=== PATIENT | female | born 1990 | race Caucasian/White ===

== ENCOUNTER 2023-12-14 12:47 | Outpatient (CLI) | payer BC, SELFPAY ==
--- NOTE | 2023-12-14 13:00 | CRLHL7_ITS ---
For Patients: As a result of the Century Cures Act, medical imaging exams and procedure reports are released immediately into your electronic medical record. You may view this report before your referring provider. If you have questions, please contact your health care provider. OB ULTRASOUND GREATHER THAN 14 WEEKS, 12/14/2023 CLINICAL HISTORY: screen. COMPARISON: None. FINDINGS: GA: 20 weeks 1 day. Position: Breech. Cervix: Visualized. Technique: TA. Length of closed cervix: 4.2 cm. Placenta/Cord: Placenta Position: Anterior. Placenta tip to internal OS: 8.5 cm. Umbilical Cord: 3 vessel cord. Placental Insertion: Eccentric. Amniotic Fluid: 4.9 cm. Observed Structures: Cerebellum: 1.9 cm, 19 weeks 1 day Cisterna Magna: 6.3 mm Nuchal Fold: 4.2 mm Lateral Ventricle: 6.6 mm CFP Midline Falx Choroid Plexus Spine Abdomen: Stomach Abd cord insert Urinary bladder Kidneys Diaphragm Face: Nose/lips Orbital view Profile Limbs: Upper extremities Lower extremities Hands Feet Vascular: 4 Ch heart LVOT RVOT 3VV 3VTV BPD: 4.5 cm, 19 weeks 5 days. 30% HC: 17.0 cm, 19 weeks 4 days. 19% AC: 16.5 cm, 21 weeks 4 days. 86% FL: 3.2 cm, 20 weeks 1 day. 42% heart rate: 155 bpm. age by this US: 20 weeks 0 days. LEONARD by this US: . EFW: 373 grams. 0 lbs 13 oz. Percentile by LEONARD: 78% IMPRESSION: 1. Single viable intrauterine . 2. Measurements are consistent with clinical dates. 3. Normal anatomic survey. Yunior Tejada M.D. Body/Diagnostic Radiologist [email or web address] Transcribed: 9:17 am DW/Dictated by: Yunior Tejada MD @ 12/16/2023 8:17:00 AM (Electronically Signed)
--- OUTSIDE RECORDS SUMMARY | 2023-12-14 13:09 | XMS_ITS | Clinical Summary ---
Author Organization [facility] Address [address] [place] [address] Care Team Providers Care Chemical Dependency Attendant Name Role Phone Unavailable Primary Care Provider Unavailabl e Source Comments You are receiving this document as you are listed as the primary care provider,follow-up provider, or the patient has been referred to you for consultation.This is in compliance with the Medicare andOhio[facility] Cent[facility]aid EHR Incentive Program,which states Providers who transition their patient to another setting of careor provider of care or refers their patient to another provider of care shouldprovide summary care record for each transition of care or referral. [employer] Allergies Active Allergy Reactions Criticality Noted Date Comments Cefaclor Hives High 05/05/2019 Medications Medication Sig Dispensed Refills Start Date End Date Status multivitamin (THERAGRAN) tablet Take 1 Tablet by mouth daily. Active omega-3 fatty acids (FISH OIL) 1000 MG capsule Take 2 g by mouth daily. Active probiotic (AKA SUPER PROBIOTIC) Take 2 Capsules by mouth daily. Active drug not in computer Acti ve Active Problems No known active problems Social History Tobacco Use Types Packs/Day Years Used Date Smoking Tobacco: Never Smokeless Tobacco: Never Sex and Gender Information Value Date Recorded Sex Assigned at Not on file Gender Identity Not on file Sexual Orientation Not on file Last Filed Vital Signs Vital Sign Reading Time Taken Comments Blood Pressure 99/74 05/05/2019 11:59 AM TENTER FEEDER Pulse 80 05/05/2019 11:59 AM TENTER FEEDER Temperature 37.1 ??C (98.8 ??F) 05/05/2019 11:[address] Respiratory Rate 16 05/05/2019 11:59 AM TENTER FEEDER Oxygen Saturation 100% 05/05/2019 11:59 AM TENTER FEEDER Inhaled Oxygen Concentration - - Weight - - Height - - Body Mass Index - - Plan of Treatment Health Maintenance Due Date Last Done Comments Cervical Cancer Screening Due 1991 Hep C Screening (Preventive Services) 1991 HIV Screening (Preventive Services) 2007 Adult Preventive Visit 2009 DTaP/Tdap/Td (1 - Tdap) 2010 HepB (1) 2010 COVID-19 Vaccine (1 - 2023-2 5 season) 2023 Influenza (#1) 2023 Zoster/Shingles (1 of 2) 2041 HPV Vaccine Aged Out No longer eligi ble based on patient's age to complete this topic HepA Aged Out No longer eligi ble based on patient's age to complete this topic Hib Aged Out No longer eligi ble based on patient's age to complete this topic IPV (Polio) Aged Out No longer eligi ble based on patient's age to complete this topic RSV Aged Out No longer eligi ble based on patient's age to complete this topic MCV4 Aged Out No longer eligi ble based on patient's age to complete this topic Pneumococcal Aged Out No longer eligi ble based on patient's age to complete this topic
--- OUTSIDE RECORDS SUMMARY | 2023-12-14 13:09 | XMS_ITS | Continuity of Care Document ---
Author Organization [facility] Address [address] [address] [place] [address] Phone Care Team Providers Care Other Sports Official Name Role Phone Shoaib Lewis Unavailable Unavailable Allergies, Adverse Reactions, Alerts Substance Reaction Status Criticality cefaclor HivesHives Active No Information cefaclor Active No Information Procedures Procedure Date Established Level 3 or 15-24 min 2019 Established Level 4 or 25-39 min 2019 Offic/outpt E&m New Mod-hi Routine Serum Collection Gg; Iga, Igd, Igg, Igm, Ea Advance Directives Directive Yes / No Effective Date File Name No Information Encounters Encounter Description Practice Location Reason(s) For Visit Diagnoses Date Provider Providers Copied on Encounter Established Level 3 or 15-24 min [facility] [place], [address] [address], [place], [id number], [place] tel:[phone] [facility] GI Symptoms or Concerns (chief complaint) Generalized abdominal painNauseaLoose stools 2- 0 Tomasz Cramer. [address] [facility] [address], [place], [id number] , [place]. tel:[phone] Referring Provider: Referral Self, USE FOR SELF REFERRALS. [facility] [place], [address] [address], [place], [id number], [place] tel:[phone] [facility] No Information [phone] Luis A Schmidt. [address] [facility], [facility] [address], [place], [id number] , [place]. tel:[phone] Established Level 4 or 25-39 min [facility], [address] [address], [place], [id number], [place] tel:[phone] [facility] GI Symptoms or Concerns (chief complaint) Change in bowel habitsAbdominal pain, unspecified abdominal location 0 Jimbo Walker. [address] [facility], [facility] [address], [place], [id number] , [place]. tel:[phone] Referring Provider: Referral Self, USE FOR SELF REFERRALS. [facility], [address] [address], [place], [id number], [place] tel:[phone] [facility] No Information 0 Luis A Schmidt. [address] [facility], [facility] [address], [place], [id number] , [place]. tel:[phone] Offic/outpt E&m New Mod-hi [facility], [address] [address], [place], [id number], [place] tel:[phone] [facility] GI Symptoms or Concerns (chief complaint) Abdominal pain, unspecified abdominal locationChange in bowel habits 0 Kristyn Nguyen. [address] [facility], [address], [place], [id number] , [place]. [phone] Family History Family Member Type Diagnosis Age At Onset Brother Problem (finding) alcoholism Father Problem (finding) irritable bowel syndrom e Mother Problem (finding) asthma Immunizations Vaccine Date Status Comments Afluria Qd administered Note: M IIC bi-directional interface ; Source: Other Registry Fluzone Quad 6mo or older administered Note: [facility]IC bi-direct ional interface ; Source: Other Registry Human Papillomavirus 9-robyn t vaccine administered Note: MIIC bi-direct ional interface ; Source: Other Registry Human Papillomavirus 9-robyn t vaccine administered Note: MIIC bi-direct ional interface ; Source: Other Registry Human Papillomavirus 9-robyn t vaccine administered Note: MIIC bi-direct ional interface ; Source: Other Registry Afluria Qd administered Note: M IIC bi-directional interface ; Source: Other Registry Fluzone Quad 6mo or older administered Note: [facility]IC bi-direct ional interface ; Source: Other Registry Payers Payer name Insurance type Covered constitution party ID Sanchez thomas(s) Krishna [employer] Of [facility] [id number] Social History Type Description Quantity Date Captured Comments Alcohol Use Details No Caffeine Use Details Unknown Tobacco Use Status Current non-smoker Smoking Status Never smoker Non-Smoking Tobacco Use Details : No Details Available : No Details Available Sex Female Vital Signs Date / Time: Height Weight BMI Pulse Rate Blood Pressure Temperature Respiratory Rate Body Surface Area Head Circumference Head Circ. Percentile Wt./[place]. Percentile BMI percentile Pulse Ox Inhaled Ox 7:42 AM 66.00 in 56.699 kg (125.00 lbs) 20.1 7 kg/m eter (2) Chief Complaint And Reason For Visit From encounter dated '02/01/2020 07:39'. GI Symptoms or Concerns (chief complaint). Description: This is a 30-year-old female who is following up on symptoms of abdominal pain, nausea, and change in bowel habits. She was previously seen [place] Choi; please refer to these notes for further information. Today'svisit was completed via virtual visit, the patient was in a private location with no other persons, consent was obtained.In short, over the past 2 to 3 years she has had intermittent episodes of abdominal pains, nausea, and change in bowel habits. Symptoms typically worsened after eating. She is unable to identify any triggering factors. However, these symptoms eventually resolve on their own over a course of 3 to 4 weeks. She has had previous workups including a CBC, CMP, thyroid testing, ultrasound, H. pylori testing, which were all normal. 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 This is currently being managed by dietary changes with an anti-inflammatory diet, supplements, and essential oils. Fortunately, this has been providing relief for the patient. Antibiotics were not given for treatment of SIBOas the patient reports a long history of antibiotic use, which she feels may have triggered her symptoms. The functional provider also suspected either parasitic infections versus inflammatory changes that may be contributing to her symptoms and recommended GI followup. The patient has never had anupper endoscopy or colonoscopy done before. No CT imaging. She has no family history of inflammatory bowel disease.Separately, the patient questions if hormonal changes and stress/anxiety may be contributing factors. She states she had been on oral contraceptives for the past 16 years, but quit about 1 year ago. Since then, she has had very irregular menstrual cycles. Reason For Referral Reason For Referral No Information Plan Of Treatment Date Type Action Status Referral Ordered: Xray Abdomen Complete Appointment date/timeframe: 05/04/2019 ordered History Of Present Illness Encounter Date Complaint History Of Prese nt Illness GI Symptoms or Concerns This is a 30-year-old female who is following up on symptoms of abdominal pain, nausea, and change in bowel habits. She was previously seen her on 12/13/[address] Choi; please refer to these notes for further information. Today's visit was completed via virtual visit, the patient was in a private location with no other persons, consent was obtained.In short, over the past 2 to 3 years she has had intermittent episodes of abdominal pains, nausea, and change in bowel habits. Symptoms typically worsened after eating. She is unable to identify any triggering factors. However, these symptoms eventually resolve on their own over a course of 3 to 4 weeks. She has had previous workups including a CBC, CMP, thyroid testing, ultrasound, H. pylori testing, which were all normal. 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 At that time, she was having change in bowel habits and abdominal pain. She had testing done, which included an ultrasound, LFTs, H. pylori, CBC, and thyroid studies. All of these were unremarkable. Additional testing at the time of the visit included an abdominal x-ray done on April 22, 2019. This showed a moderate amount of stool. She was tested negative for celiac disease.She notes that around April she got ill and afterwards she felt no GI symptoms. About 8 weeks ago, she went on a special diet to try to improve her acne. After that, she started having abdominal pain and changes in her bowel movements. Her stools have been looser and smaller in amount. She has had some bloating. She will get abdominal upset about an hour after eating most foods. She has since gone off this diet about a week ago due to these side effects. She has noticed some improvement. 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 She states for the last 3-1/2 weeks or so, she has had a dull burning pain in the upper abdominal area that comes in waves. This occurs on and off. She also has noted more irregular bowel movements. She has had irregularity with her bowel movements over the years and this certainly worsens with anxiety which she has significantly. When she is anxious, this will produce urgent bowel movements typically. Because of issues with anxiety and poor sleep, she cut out gluten, dairy, and sugars since January. Over the last 2 months, she has also been on magnesium. Around the start of these symptoms, she stopped the control pill that she had been on for 17 years. She tried a progesterone clean and then had a period, then these symptoms started. She also stopped spironolactone a month ago. She was on that for acne. About once a week or so, she has random loose stools. Typically, she will have Kenton type IV bowel Functional Status Date Functional Assessmen t No Information Instructions Date Instruction Additional Infor calista Provider plan - At t his point, we will check an abdominal x-ray to look for excessive stool. Check blood tests for celiac (she has been mostly off of gluten, so if it comes back entirely normal, would not necessarily rule out celiac disease), try IBgard to see if that helps with her symptoms. Also starting Metamucil powder to see if that can help with bowel movements and symptoms. I will set up a followup appointment in clinic. If she is still having issues, we may consider further evaluation, CT scan? colonoscopy?. We preliminary discussed those today too, she also felt we did not need to necessarily proceed with those currently. Related to Abdominal pain, unspecified abdominal location Assessments Type Assessment Date assessment Generalized abdominal pain assessment Nausea assessment Loose stools impression A 30-year-old female with intermittent symptoms of abdominal pain, nausea and loose stools. Initial workup including CBC, CMP, lipase, thyroid tests, H. pylori, and ultrasound was unremarkable. X-ray from April 2019 noted moderate amount of stool in her colon, but was otherwise normal. She is working with a Functional Medicine doctor, which diagnosed her with SIBO and Tracy overgrowth. She is currently on a treatment with dietary changes, supplements, and essential oils, which has been helpful for the patient.I suspect the patient likely has IBS or other functional disorders, SIBO could also be a contributing factor. Mucosal diseases like inflammatory bowel disease remain a possibility, although given the mildness of her symptoms I do not have a high suspicion for this.At this point, I would recommend we can either proceed with conservative measures as she is doing versus further diagnostic testing such as endoscopic examinations or CT imaging. We also discussed about symptom management with medications like antispasmodics for her abdominal pain, antiemetics for her nausea. After much discussion, the patient would prefer to continue with her current regimen as prescribed by her functional provider. If symptoms do not improve or if she should change her mind, she will contact us by phone to either schedule the endoscopic evaluation or try medications like dicyclomine or hyoscyamine.The patient agrees with this plan and has no further questions or concerns. Twenty minutes spent with the patient, over 50% of the time was spent on counseling and coordination of care. Patient Care Teams Name Effective Dates (start - stop) Status Members No Information
--- OUTSIDE RECORDS SUMMARY | 2023-12-14 13:10 | XMS_ITS | Referral Summary ---
Author Organization [facility] Address [address] [facility] [place] [address] Care Team Providers Care Crater And Packer Name Role Phone Madeline Ventura PA-C Primary Care Provid er Jovanny Bennett MD Unavailable [phone] Allergies Active Allergy Reactions Criticality Noted Date Comments Cefaclor Hives 07/04/2014 Medications Medication Sig Dispensed Refills Start Date End Date Status Multiple Vitamin (MULTI-VITAMINS) TABS Take 1 tablet by mouth Active [employer]-3 Fish Oil 500 MG capsule Take 1 capsule (500 mg) by mouth daily 03/26/2021 Active vitamin D3 (CHOLECALCIFEROL) 50 mcg (2000 units) tablet Take 1 tablet (50 mcg) by mouth daily 03/26/2021 Active amoxicillin-clavulana te (AUGMENTIN) 875-125 MG tabletIndications:Acu te bacterial sinusitis Take 1 tablet by mouth 2 times daily 14 tablet 12/25/2021 Active Active Problems Problem Noted Date Diagnosed Date Encounter for triage in patient 021 10/06/2020 Generalized anxiety disorder with panic attacks 09/28/2018 ACP (advance care planning) 04/25/2016 Overview: Resolved Problems Problem Noted Date Diagnosed Date Resolved Date Health [facility] Living 04/25/2016 08/17/2023 Well woman exam with routine gynecological exam 07/04/2014 04/08/2019 Overview: Pap smear 07/04/14____ On Junel likes well. Immunizations Name Administration Dates Next Due DTAP (<7y) 10/24/1996, 3,1991,1991, HIB (PRP-T) 10/25/1999 HPV9 02/26/2017,10/27/2016,07/15/2016 HepB 10/15/2001,10/25/1999 MMR 10/30/2003,06/19/1992 Meningococcal (Menomune??) 09/30/2011 Poliovirus, inactivated (IPV) 10/24/1996, 993,1991,1991 TD,PF 7+ (Tenivac) 10/30/2003 TDAP (Adacel,Boostrix) 09/30/2011 Social History Tobacco Use Types Packs/Day Years Used Date Smoking Tobacco: Never Smokeless Tobacco: Never Tobacco Cessation:Counseling Given: No Alcohol Use Standard Drinks/Week Comments Not Currently 0 (1 standard drink = 0.6 oz pur e alcohol) AUDIT-C Answer Date Recorded Q1: How often do you have a drink containing alc ohol? Never 04/08/2019 Average Number of Drinks Not on file 020 Frequency of Binge Drinking Not on file 08/2019 PHQ-2 Answer Date Recorded PHQ-2 Score 0 11/21/2019 Cordova Depression Scale Answer Date Recorded Cordova Depression Score 2 10/07/2020 Last EPDS Self Harm Result Not on file 10/07 Adolescent Education Answer Date Record ed Getting School Help Needed Not on file 11/21 Sex and Gender Information Value Date Recorded Sex Assigned at Not on file Gender Identity Not on file Sexual Orientation Not on file Last Filed Vital Signs Vital Sign Reading Time Taken Comments Blood Pressure 118/82 12/25/2021 11:30 AM CDT Pulse 77 12/25/2021 11:30 AM CDT Temperature 37.1 ??C (98.7 ??F) 12/25/2021 11:30 AM C DT Respiratory Rate 20 03/26/2021 11:47 AM REVENUE ENFORCEMENT AGENT Oxygen Saturation 99% 12/25/2021 11:30 AM CDT Inhaled Oxygen Concentration - - Weight 59.9 kg (132 lb) 12/25/2021 11:30 AM CDT Height 167.6 cm (5' 6) 10/06/2020 4:45 AM CDT Body Mass Index 21.31 10/06/2020 4:45 AM CDT Plan of Treatment Not on file Procedures Procedure Name Priority Date/Time Associated Diagnosis Comments PAP IMAGED THIN LAYER SCREEN Routine 04/28/2019 4:44 PM REVENUE ENFORCEMENT AGENT Pap smear for cervical cancer screening from Last 3 Months or Most Recently Relevant to Health Maintenance Results * PAP imaged thin layer screen (04/28/2019 4:44 PM REVENUE ENFORCEMENT AGENT) PAP NIL GUTIERREZ Clemens Report Patient Name: JACEK MARTÍNEZ MR#: [id number] Specimen #: [id number] Collected: 04/28/2019 Received: 05/02/2019 Reported: 05/03/2019 15:26 Ordering Phy(s): NUBIA WELLS For improved result formatting, select 'View Enhanced Report Format' under Linked Documents section. SPECIMEN/STAIN PROCESS: Pap imaged thin layer prep screening (Surepath, FocalPoint with guided screening) ? Pap-Cyto x 1, HPV ordered x 1 SOURCE: Cervical, endocervical Pap imaged thin layer prep screening (Surepath, FocalPoint with guided screening) SPECIMEN ADEQUACY: Satisfactory for evaluation. -Transformation zone component present. CYTOLOGIC INTERPRETATION: Negative for intraepithelial lesion or malignancy Electronically signed out by: HORTENCIA Bianchi ??(ASCP) CLINICAL HISTORY: LMP: 03/26/19 A previous normal pap Date of Last Pap: 07/28/17, Papanicolaou Test Limitations: ??Cervical cytology is a screening test with limited sensitivity; regular screening is critical for cancer prevention; Pap tests are primarily effective for the diagnosis/preventi on of squamous cell carcinoma, not adenocarcinomas or other cancers. COLLECTION SITE: Client: ??[facility] Location: [facility] (R) The technical component of this testing was completed at the [facility], with the professional component performed at [facility], [address], [place] [address] ([phone]) COPATH Cytologic material (specimen) 04/28/2019 4:44 PM REVENUE ENFORCEMENT AGENT 05/02/2019 8:25 AM REVENUE ENFORCEMENT AGENT Nubia Wells [facility] SPECIMEN COPATH from Last 3 Months or Most Recently Relevant to Health Maintenance Advance Directives For more information, please contact: [phone] * Full Code (Latest Code Status on File) Date Activated Date Inactivated Comments 10/06/2020 6:43 PM 10/08/2020 1:32 PM All basic and advanced life-sustaining interventions are performed as appropriate Question Answer Comments Code status determined by: Unable to det ermine; FULL CODE until documents or legal decision maker available Care Teams Crater And Packer Relationship Specialty Start Date End Date Madeline Ventura PA-C [address], [address] [place] [address] PCP - General Physician Set Illustrator 04/25/16 Jovanny Bennett MD [address], [address] [place] [address] Assigned PCP 03/31/21
--- OUTSIDE RECORDS SUMMARY | 2023-12-14 13:10 | XMS_ITS | Encounter Summary ---
Author Organization [place] Address [address] [place] [address] Care Team Providers Care Fire Protection Engineer Name Role Phone Madeline Ventura PA-C Primary Care Provid er Madeline Ventura PA-C Unavailable +- [phone] Nancy Painter PA-C Unavailable Efrain Kramer MD Unavailable Unavailab Talita Omalley MD Unavailable [phone] Stephanie Valle CNM Unavailable [phone] Madeline Ventura PA-C Unavailable + [phone] Talita Dominguez MD Unavailable [phone] Jovanny Bennett MD Unavailable [phone] Encounter Details Date Type Department Care Team (Late st Contact Info) Description 08/30/2019 [facility] [address] [place] [address] Stephanie Valle CNM [address] [facility] [address] [place] [address] Social History Tobacco Use Types Packs/Day Years Used Date Smoking Tobacco: Never Smokeless Tobacco: Never Alcohol Use Standard Drinks/Week Comments Never 0 (1 standard drink = 0.6 oz pur e alcohol) AUDIT-C Answer Date Recorded Q1: How often do you have a drink containing alc ohol? Never 04/08/2019 Average Number of Drinks Not on file 020 Frequency of Binge Drinking Not on file 08/2019 PHQ-2 Answer Date Recorded PHQ-2 Score 0 03/10/2018 Sex and Gender Information Value Date Recorded Sex Assigned at Not on file Gender Identity Not on file Sexual Orientation Not on file documented as of this encounter Plan of Treatment Not on file documented as of this encounter Visit Diagnoses Not on filedocumented in this encounter Additional Health Concerns Assessment Noted Time PHQ-9 Depression Total Score: 5 09/28/19 19 4:55 PM CDT documented as of this encounter Care Teams Fire Protection Engineer Relationship Specialty Start Date End Date Madeline Ventura PA-C [address], [address] [place] [address] PCP - General Physician Child And Adolescent Psychologist 04/25/16 Madeline Ventura PA-C [address], [address] [place] [address] Assigned PCP 08/03/16 10/01/19 Nancy Painter PA-C [facility] [address], [address] [place] [address] Assigned PCP 10/02/19 11/19/19 Efrain Kramer MD INACTIVE IN [place] 06/29/2020 Assigned PCP 11/20/19 11/26/19 Talita Dominguez MD [address], [address] [place] [address] Assigned PCP 11/27/19 11/24/20 Stephanie Valle CNM [address] [place] [address] Assigned OBGYN Provider 12/23/19 Madeline Ventura PA-C [address], [address] [place] [address] Assigned PCP 11/25/20 03/09/21 Talita Dominguez MD [address], [address] [place] [address] Assigned PCP 03/10/21 03/30/21 Jovanny Bennett MD [address], [address] [place] [address] Assigned PCP 03/31/21 documented as of this encounter
--- OUTSIDE RECORDS SUMMARY | 2023-12-14 13:10 | XMS_ITS | Encounter Summary ---
Author Organization [place] Address [address] [place] [address] Care Team Providers Care Gummed Tape Press Operator Name Role Phone Madeline Ventura PA-C Primary Care Provid er Madeline Ventura PA-C Unavailable +- [phone] Nancy Painter PA-C Unavailable Efrain Kramer MD Unavailable Unavailab Talita Omalley MD Unavailable [phone] Stephanie Valle [facility] Unavailable [phone] Madeline Ventura PA-C Unavailable Talita Dominguez MD Unavailable [phone] Jovanny Bennett MD Unavailable [phone] Encounter Details Date Type Department Care Team (Late st Contact Info) Description 01/11/[address] [facility] [address] [place] [address] Caroline Ennis MD [address] [place] [address] Social History Tobacco Use Types Packs/Day Years Used Date Smoking Tobacco: Never Smokeless Tobacco: Never Alcohol Use Standard Drinks/Week Comments Yes 0 (1 standard drink = 0.6 oz pur e alcohol) occasional AUDIT-C Answer Date Recorded Frequency of Alcohol Consumption Monthly or less 08/19/2018 Average Number of Drinks Not on file 019 Frequency of Binge Drinking Not on file 08/01 PHQ-2 Answer Date Recorded PHQ-2 Score 0 [...] documented as of this encounter Care Teams Gummed Tape Press Operator Relationship Specialty Start Date End Date Madeline Ventura PA-C [address], [address] [place] [address] PCP - General Physician Comedian 04/25/16 Madeline Ventura PA-C [address], [address] [place] [address] Assigned PCP 08/03/16 10/01/19 Nancy Painter PA-C [facility] [address], [facility] [address] [place] [address] Assigned PCP 10/02/19 11/19/19 Efrain Kramer MD INACTIVE IN [place] 06/29/2020 Assigned PCP 11/20/19 11/26/19 Talita Dominguez MD [address], [address] [place] [address] Assigned PCP 11/27/19 11/24/20 Stephanie Valle CNM [address] [facility] [address] [place] [address] Assigned OBGYN Provider 12/23/19 Madeline Ventura PA-C [address], [address] [place] [address] Assigned PCP 11/25/20 03/09/21 Talita Dominguez MD [address], [facility] [address] [place] [address] Assigned PCP 03/10/21 03/30/21 Jovanny Bennett MD [address] [place] [address] Assigned PCP 03/31/21 documented as of this encounter
--- OUTSIDE RECORDS SUMMARY | 2023-12-14 13:10 | XMS_ITS | Encounter Summary ---
Author Organization [place] Address [address] [facility] [place] [address] Care Team Providers Care Vegetable I Farmworker Name Role Phone Madeline Ventura PA-C Primary Care Provid er Consuelo Koo MD Unavailable [place]ytownMadeline dumont PA-C Unavailable + [phone] Nancy Painter PA-C Unavailable Efrain Kramer MD Unavailable Unavailab Talita Omalley MD Unavailable Stephanie Valle [facility] Unavailable Madeline Ventura PA-C Unavailable + [phone] Talita Dominguez MD Unavailable [phone] Jovanny Bennett MD Unavailable [phone] Encounter Details Date Type Department Care Team (Late st Contact Info) Description 11/05/2017 [facility] Medical Advice [facility] [address] [facility] [address] [place] [address] Caroline Ennis MD [address] [place] [address] Social History Tobacco Use Types Packs/Day Years Used Date Smoking Tobacco: Never Smokeless Tobacco: Never Alcohol Use Standard Drinks/Week Comments Yes 0 (1 standard drink = 0.6 oz pur e alcohol) occasional Sex and Gender Information Value Date Recorded Sex Assigned at Not on file Gender Identity Not on file Sexual Orientation Not on file documented as of this encounter Miscellaneous Notes * Telephone Encounter - Caroline Ennis MD - 11/06/2017 8:52 AM CDT 3 months. Caroline Ennis MD * Telephone Encounter - Talita Lira RN - 11/05/2017 10:45 AM CDT Please see [employer] message and advise. Talita Lira RN documented in this encounter Plan of Treatment Not on file documented as of this encounter Visit Diagnoses Not on filedocumented in this encounter Care Teams Vegetable I Farmworker Relationship Specialty Start Date End Date Madeline Ventura PA-C [address] [address] PCP - General Physician Furnace Converter 04/25/16 Consuelo Koo MD [address] [place], [place] [address] PCP - Assigned PCP 03/15/17 05/04/18 Madeline Ventura PA-C [address] [address] Assigned PCP 08/03/16 10/01/19 Nancy Painter PA-C [facility] [address] [facility] [place], [facility] [address] [place] [address] Assigned PCP 10/02/19 11/19/19 Efrain Kramer MD INACTIVE IN [place] 06/29/2020 Assigned PCP 11/20/19 11/26/19 Talita Dominguez MD [address] , [address] [address] Assigned PCP 11/27/19 11/24/20 Stephanie Valle CNM [address] [address] Assigned OBGYN Provider 12/23/19 Madeline Ventura PA-C [address] , [address] [address] Assigned PCP 11/25/20 03/09/21 Talita Dominguez MD [address] , [address] [address] Assigned PCP 03/10/21 03/30/21 Jovanny Bennett MD [address] , [address] [address] Assigned PCP 03/31/21 documented as of this encounter
--- OUTSIDE RECORDS SUMMARY | 2023-12-14 13:10 | XMS_ITS | Encounter Summary ---
Author Organization [place] Address [address] [place] [address] Care Team Providers Care Sports Broadcasting Internship Name Role Phone Madeline Ventura PA-C Primary Care Provid er Madeline Ventura PA-C Unavailable [phone]- [phone] Nancy Painter PA-C Unavailable Efrain Kramer MD Unavailable Unavailab Talita Omalley MD Unavailable [phone] Stephanie Valle [facility] Unavailable [phone] Madeline Ventura PA-C Unavailable [phone] Talita Dominguez MD Unavailable Jovanny Bennett MD Unavailable [phone] Reason for Visit * Reason Onset Date Comments Medication Question 03/31/2019 Encounter Details Date Type Department Care Team (Late st Contact Info) Description 03/31/2019 [facility] Medical Advice [facility] [address] [place] [address] Caroline Ennis MD [address] [place] [address] Medication Question Social History Tobacco Use Types Packs/Day Years [...] Telephone Encounter - Caroline Ennis MD - 03/31/2019 4:38 PM CST If she continues to skip periods for more than 2 months, we need to see her for some labs and follow up. Caroline Ennis MD ICE DISPATCHER * Telephone Encounter - Adilene Wilks RN - 03/31/2019 3:46 PM CST Please see response. Adilene Wilks RN ICE DISPATCHER * Telephone Encounter - Caroline Ennis MD - 03/31/2019 3:17 PM CST Probably related to the progesterone, as this is all fairly common with that med. Did she end up using prometrium in the past when I prescribed it? That is also progesterone, and if she tolerated it better, she may need an ongoing prescription for it. Caroline Ennis MD ICE DISPATCHER * Telephone Encounter - Sarah Farah RN - 03/31/2019 10:51 AM CST Please see [employer] message update. Any suggestion for sx? Sarah Carbajal R.N. ICE DISPATCHER documented in this encounter Plan of Treatment Not on file documented as of this encounter Visit Diagnoses Not on filedocumented in this encounter Additional Health Concerns Assessment Noted Time PHQ-9 Depression Total Score: 5 09/28/19 19 4:55 PM CDT documented as of this encounter Care Teams Sports Broadcasting Internship Relationship Specialty Start Date End Date Madeline Ventura PA-C [address], [facility] [address] [place] [address] PCP - General Physician Grocery Manager 04/25/16 Madeline Ventura PA-C [address], [address] [place] [address] Assigned PCP 08/03/16 10/01/19 Nancy Painter PA-C [facility] [address], [facility] [address] [place] [address] Assigned PCP 10/02/19 11/19/19 Efarin Kramer MD INACTIVE IN [place] 06/29/2020 Assigned PCP 11/20/19 11/26/19 Talita Dominguez MD [address], [facility] [address] [place] [address] Assigned PCP 11/27/19 11/24/20 Stephanie Valle CNM [address] [facility] [address] [place] [address] Assigned OBGYN Provider 12/23/19 Madeline Ventura PA-C [address], [address] [place] [address] Assigned PCP 11/25/20 03/09/21 Talita Dominguez MD [address], [address] [address] Assigned PCP 03/10/21 03/30/21 Jovanny Bennett MD [address], [address] [address] Assigned PCP 03/31/21 documented as of this encounter
--- OUTSIDE RECORDS SUMMARY | 2023-12-14 13:10 | XMS_ITS | Encounter Summary ---
Author Organization [place] Address [address] [facility] [place] [address] Care Team Providers Care Agribusiness Professor Name Role Phone Madeline Ventura PA-C Primary Care Provid er Madeline Ventura PA-C Unavailable +- [phone] Nancy Painter PA-C Unavailable Efrain Kramer MD Unavailable Unavailab Talita Omalley MD Unavailable [phone] Stephanie Valle [facility] Unavailable Madeline Ventura PA-C Unavailable Talita Dominguez MD Unavailable Jovanny Bennett MD Unavailable [phone] Encounter Details Date Type Department Care Team (Late st Contact Info) Description 09/21/2018 MyC Medical Advice [facility] [address] [place] [address] Caroline Ennis MD [address] [place] [address] Social History Tobacco Use Types Packs/Day Years [...] Telephone Encounter - Caroline Ennis MD - 09/21/2018 9:43 AM CDT Typically, hormone levels are not checked in women who are not menopausal unless they are not having periods or experiencing infertility. In particular, there is no reason to check while on oral contraceptive pills since this will affect the hormone levels. The normal ranges are wide, and it does not help us to guide therapy unless there is a specific hormone-related problem like absence of periods. If she is planning , I recommend a vitamin daily. Thanks. Caroline Ennis MD * Telephone Encounter - Maddy Del Real RN - 09/21/2018 8:11 AM CDT Please address the my chart message. Weston Del Real RN documented in this encounter Plan of Treatment Not on file documented as of this encounter Visit Diagnoses Not on filedocumented in this encounter Care Teams Agribusiness Professor Relationship Specialty Start Date End Date Madeline Ventura PA-C [address] , [address] [address] PCP - General Physician Advertising Rep 04/25/16 Madeline Ventura PA-C [address], [address] [address] Assigned PCP 08/03/16 10/01/19 Nancy Painter PA-C [facility] [address], [facility] [address] [place] [address] Assigned PCP 10/02/19 11/19/19 Efrain Kramer MD INACTIVE IN [place] 06/29/2020 Assigned PCP 11/20/19 11/26/19 Talita Dominguez MD [address], [facility] [address] [place] [address] Assigned PCP 11/27/19 11/24/20 Stephanie Valle [facility] [address] [address] Assigned OBGYN Provider 12/23/19 Madeline Ventura PA-C [address], [address] [address] Assigned PCP 11/25/20 03/09/21 Talita Dominguez MD [address], [address] [address] Assigned PCP 03/10/21 03/30/21 Jovanny Bennett MD [address], [address] [address] Assigned PCP 03/31/21 documented as of this encounter
--- OUTSIDE RECORDS SUMMARY | 2023-12-14 13:10 | XMS_ITS | Encounter Summary ---
Author Organization [place] Address [address] [facility] [place] [address] Care Team Providers Care Auto Body Repair Technician Name Role Phone Madeline Ventura PA-C Primary Care Provid er Madeline Ventura PA-C Unavailable +- [phone] Nancy Painter PA-C Unavailable Efrain Kramer MD Unavailable Unavailab Talita Omalley MD Unavailable [phone] Stephanie Valle [facility] Unavailable [phone] Madeline Ventura PA-C Unavailable [phone] Talita Dominguez MD Unavailable [phone] Jovanny Bennett MD Unavailable [phone] Reason for Visit * Reason Onset Date Comments Amenorrhea 03/15/2019 Encounter Details Date Type Department Care Team (Late st Contact Info) Description 03/15/2019 [facility] [address] [place] [address] Caroline Ennis MD [address] [place] [address] Amenorrhea Social History Tobacco Use Types Packs/Day Years [...] encounter Miscellaneous Notes * Telephone Encounter - Sarah Farah RN - 03/16/2019 3:53 PM CST Orders placed, Info sent to pt via [email or web address]. Sarah Carbajal R.N. TH CARE MARKETING MANAGER * Telephone Encounter - Caroline Ennis MD - 03/16/2019 3:35 PM CST Recommend progesterone in the form of prometrium 200 mg daily for 10 days to induce a period if urine test is negative. Come in on day 3 for FSH, estradiol, TSH with reflex to T4, prolactin. Then come in on day 21 for progesterone. See me back after all lab tests. If trying to get , start a once a day. Caroline Ennis MD TH CARE MARKETING MANAGER * Telephone Encounter - Sarah Farah RN - 03/15/2019 1:32 PM CST Please see [email or web address] message and advise. Do you want her to see you? Sarah Carbajal R.N. TH CARE MARKETING MANAGER documented in this encounter Plan of Treatment Not on file documented as of this encounter Visit Diagnoses Diagnosis Amenorrhea- Primary Absence of menstruation documented in this encounter Additional Health Concerns Assessment Noted Time PHQ-9 Depression Total Score: 5 09/28/19 19 4:55 PM CDT documented as of this encounter Care Teams Auto Body Repair Technician Relationship Specialty Start Date End Date Madeline Ventura PA-C [address], [facility] [address] [place] [address] PCP - General Physician Roofing Layer 04/25/16 Madeline Ventura PA-C [address], [facility] [address] [place] [address] Assigned PCP 08/03/16 10/01/19 Nancy Painter PA-C [facility] [address], [address] [address] Assigned PCP 10/02/19 11/19/19 Efrain Kramer MD INACTIVE IN [place] 06/29/2020 Assigned PCP 11/20/19 11/26/19 Talita Dominguez MD [address] , [address] [address] Assigned PCP 11/27/19 11/24/20 Stephanie Valle CN [address] [address] Assigned OBGYN Provider 12/23/19 Madeline Ventura PA-C [address], [address] [address] Assigned PCP 11/25/20 03/09/21 Talita Dominguez MD [address] , [address] [address] Assigned PCP 03/10/21 03/30/21 Jovanny Bennett MD [address] [place] [address] Assigned PCP 03/31/21 documented as of this encounter
--- OUTSIDE RECORDS SUMMARY | 2023-12-14 13:10 | XMS_ITS | Encounter Summary ---
Author Organization [place] Address [address] [place] [address] Care Team Providers Care Pest Management Supervisor Name Role Phone Madeline Ventura PA-C Primary Care Provid er Talita Dominguez MD Unavailable [phone] Stephanie Valle [facility] Unavailable [phone] Madeline Ventura PA-C Unavailable + [phone] Talita Dominguez MD Unavailable [phone] Jovanny Bennett MD Unavailable [phone] Reason for Visit * Reason Onset Date Comments Confirmation Of 02/07/2020 GI Problem 02/07/2020 Encounter Details Date Type Department Care Team (Late st Contact Info) Description 02/07/2020 Telephone [facility] [address] [place] [address] Caroline Ennis MD [address] [place], [place] [address] Confirmation Of ; GI Problem Social History Tobacco Use Types Packs/Day Years [...] Answer Date Recorded PHQ-2 Score 0 11/21/2019 Sex and Gender Information Value Date Recorded Sex Assigned at Not on file Gender Identity Not on file Sexual Orientation Not on file documented as of this encounter Miscellaneous Notes * Telephone Encounter - Sarah Farah RN - 02/07/2020 8:31 AM CST Pt states she thinks she is only about 2.5 weeks . She was having very irregular periods sothis was a surprise. She has had some stomach issues that have been intermittent and she has seen specialists for this. She has a lot of low back pain as well. She mentions some cramping in her intestines. I advised to try simethicone, and maalox or mylanta if needed. If she should develop period like cramping or spotting call to get blood work. Reach out to primaryfor any increased GI sx unrelated to . Sarah Carbajal R.N. TING MACHINE FEEDER * Telephone Encounter - Ferny Dickson - 02/07/2020 7:38 AM CST Pt had a positive test today LMP 11/25/2019 , 1st . Pt has been having ongoing GIissues since conception 2 weeks ago. Diarrhea,cramping but is also experiencing , spotting. low back pain, extreme Thirst/ dry mouth, dizziness. Pt would like to Be fit in to be seen in clinic [facility]. Please call pt to advise. Thank you, Ferny Adams Central Scheduling [phone] TING MACHINE FEEDER documented in this encounter Plan of Treatment Not on file documented as of this encounter Visit Diagnoses Not on filedocumented in this encounter Additional Health Concerns Assessment Noted Time PHQ-9 Depression Total Score: 5 09/28/19 19 4:55 PM CDT documented as of this encounter Care Teams Pest Management Supervisor Relationship Specialty Start Date End Date Madeline Ventura PA-C [address], [facility] [address] [place] [address] PCP - General Physician Director Of Front Office 04/25/16 Talita Dominguez MD [address], [facility] [address] [place] [address] Assigned PCP 11/27/19 11/24/20 Stephanie Valle CNM [address] [address] Assigned OBGYN Provider 12/23/19 Madeline Ventura PA-C [address], [facility] [address] [place] [address] Assigned PCP 11/25/20 03/09/21 Talita Dominguez MD [address], [address] [address] Assigned PCP 03/10/21 03/30/21 Jovanny Bennett MD [address], [address] [address] Assigned PCP 03/31/21 documented as of this encounter
--- OUTSIDE RECORDS SUMMARY | 2023-12-14 13:10 | XMS_ITS | Clinical Summary ---
Author Organization [facility] Address [place], [place] [address] Care Team Providers Care Dumpling Machine Operator Name Role Phone Clinic, No Pcp Or Primary Care Provider Unavaila ble Allergies Active Allergy Reactions Criticality Noted Date Comments Cefaclor Hives 07/04/2014 Medications No known medications Active Problems No known active problems Immunizations Name Administration Dates Next Due DTaP 10/24/1996, 3,1991,06/01,1991 HIB PRP-T (ActHIB,Hiberix) 10/25/1999 HPV 9 (Gardasil 9) 02/26/2017,10/27/2016, 017 Hepatitis B, Unspecified 10/15/2001,10/25/1999 Inactivated Polio Vaccine 10/24/1996,,1991,03/21 Influenza, IIV4 12/31/2017,02/14/2016 MMR 10/30/2003,06/19/1992 Meningococcal Vaccine (Menomune) 09/30/2011 Td, Preservative Free (age >= 7 Years) 4 Tdap 09/30/2011 Family History Medical History Relation Name Comments No Known Problems Brother Hyperlipidemia Father Hypertension Maternal Grandmother Other Mother precancerous ce rvix -hysterectomy Coronary artery disease Paternal Grandfather Stroke Paternal Grandfather Coronary artery disease Paternal Grandmother Stroke Paternal Grandmother Relation Name Status Comments Brother Father Alive Maternal Grandmother Mother Alive Paternal Grandfather Paternal Grandmother Social History Tobacco Use Types Packs/Day Years Used Date Smoking Tobacco: Never Smokeless Tobacco: Never Alcohol Use Standard Drinks/Week Comments Yes 0 (1 standard drink = 0.6 oz pur e alcohol) ocassionally PHQ-2 Answer Date Recorded PHQ-2 Score 1 01/13/2019 Sex and Gender Information Value Date Recorded Sex Assigned at Not on file Gender Identity Not on file Sexual Orientation Not on file Obstetrics History Last Filed Vital Signs Vital Sign Reading Time Taken Comments Blood Pressure 133/88 05/24/2023 3:16 PM CDT Pulse 92 05/24/2023 3:16 PM CDT Temperature 37 ??C (98.6 ??F) 05/24/2023 3:16 PM CDT Respiratory Rate 16 05/24/2023 3:16 PM CDT Oxygen Saturation 97% 05/24/2023 3:16 PM CDT Inhaled Oxygen Concentration - - Weight 59 kg (130 lb) 05/24/2023 3:16 PM CDT Height 167.6 cm (5' 6) 05/24/2023 3:16 PM CDT Body Mass Index 20.98 05/24/2023 3:16 PM CDT Plan of Treatment Health Maintenance Due Date Last Done Comments HIV for age 15-65 2006 Hepatitis C screening for age 18-79 2009 BMI (ht and wt on same day) for age 18+ 05/01/2019 04/30/2018, 12/15/2017 Depression screening for age 12+ 03/24/2020 03/24/2019, 03/10/2019, 02/24/2019, Additional history exists Pap test for age 21-65 07/28/2020 8 ([facility]) Tetanus booster 09/29/2021 09/30/2011, 10/30/2003 COVID-19 vaccine series ( season) 2023 Influenza for age 9-49 11/01/2023 12/31/2017, 2015 Tdap Completed 09/30/2011 Pneumococcal series for age 6-64 Aged Out No longer eligible based on patient's age to complete this topic Care Teams Dumpling Machine Operator Relationship Specialty Start Date End Date Clinic, No Pcp Or . PCP - General 11/21/22
--- OUTSIDE RECORDS SUMMARY | 2023-12-14 13:10 | XMS_ITS | Encounter Summary ---
Author Organization [place] Address [address] [place] [address] Care Team Providers Care Glost Tile Sorter Name Role Phone Madeline Ventura PA-C Primary Care Provid er Madeline Ventuar PA-C Unavailable [phone]- [phone] Nancy Painter PA-C Unavailable Efrain Kramer MD Unavailable Unavailab Talita Omalley MD Unavailable [phone] Stephanie Valle CNM Unavailable Madeline Ventura PA-C Unavailable Talita Dominguez MD Unavailable [phone] Jovanny Bennett MD Unavailable [phone] Reason for Visit * Reason Onset Date Comments Follow Up 05/03/2019 Encounter Details Date Type Department Care Team (Late st Contact Info) Description 05/03/2019 [facility] [address] [place] [address] Stephanie Valle, JEREMY [address] [facility] [address] [place], [place] [id number] Follow Up Social History Tobacco Use Types Packs/Day Years [...] Telephone Encounter - Sarah Farah RN - 05/03/2019 11:16 AM CST Just an fyi, f/u message from your previous message to her. Sarah Carbajal R.N. D REPRESENTATIVES DIRECTOR documented in this encounter Plan of Treatment Not on file documented as of this encounter Visit Diagnoses Not on filedocumented in this encounter Additional Health Concerns Assessment Noted Time PHQ-9 Depression Total Score: 5 09/28/19 19 4:55 PM CDT documented as of this encounter Care Teams Glost Tile Sorter Relationship Specialty Start Date End Date Madeline Ventura PA-C [address] [address] PCP - General Physician Therapy Aide 04/25/16 Madeline Ventura PA-C [address] , [facility] [address] [place] [address] Assigned PCP 08/03/16 10/01/19 Nancy Painter PA-C [facility] [address], [address] [address] Assigned PCP 10/02/19 11/19/19 Efrain Kramer MD INACTIVE IN [place] 06/29/2020 Assigned PCP 11/20/19 11/26/19 Talita Dominguez MD [address], [facility] [address] [place] [address] Assigned PCP 11/27/19 11/24/20 Stephanie Valle CN [address] [facility] [address] [place] [address] Assigned OBGYN Provider 12/23/19 Madeline Ventura PA-C [address], [address] [place] [address] Assigned PCP 11/25/20 03/09/21 Talita Dominguez MD [address], [address] [place] [address] Assigned PCP 03/10/21 03/30/21 Jovanny Bennett MD [address], [address] [address] Assigned PCP 03/31/21 documented as of this encounter
--- OUTSIDE RECORDS SUMMARY | 2023-12-14 13:10 | XMS_ITS | Clinical Summary ---
Author Organization [place] Address [address] [facility] [place] [address] Care Team Providers Care Sulfide Head Operator Name Role Phone Madeline Ventura PA-C Primary Care Provid er Jovanny Bennett MD Unavailable [phone] Allergies Active Allergy Reactions Criticality Noted Date Comments Cefaclor Hives 07/04/2014 Medications Medication Sig Dispensed Refills Start Date End Date Status Multiple Vitamin (MULTI-VITAMINS) TABS Take 1 tablet by mouth Active [place]-3 Fish Oil 500 MG capsule Take 1 [...] Noted Date Diagnosed Date Resolved Date Health Skilled Nursing 04/25/2016 08/17/2023 Well woman exam with routine gynecological exam 07/04/2014 04/08/2019 Overview: Pap smear 07/04/14____ On Junel likes well. Immunizations Name Administration Dates Next Due DTAP (<7y) 10/24/1996, 3,1991,1991, HIB (PRP-T) 10/25/1999 HPV9 02/26/2017,10/27/2016,07/15/2016 HepB 10/15/2001,10/25/1999 MMR 10/30/2003,06/19/1992 Meningococcal (Menomune??) 09/30/2011 Poliovirus, inactivated (IPV) 10/24/1996, 993,1991,1991 TD,PF 7+ (Tenivac) 10/30/2003 TDAP (Adacel,Boostrix) 09/30/2011 Family History Medical History Relation Comments Depression/Anxiety Father Hyperlipidemia Father Depression/Anxiety Maternal Aunt Depression/Anxiety Maternal Grandmother Hypertension Maternal Grandmother Depression/Anxiety Mother Hyperlipidemia Paternal Grandfather Hypertension Paternal Grandfather Anxiety Disorder Paternal Grandmother Hyperlipidemia Paternal Grandmother Hypertension Paternal Grandmother Relation Status Comments Brother Alive Father Alive Maternal Aunt Maternal Grandmother Mother Alive Paternal Grandfather Paternal [...] Answer Date Recorded PHQ-2 Score 0 11/21/2019 Glen Depression Scale Answer Date Recorded Glen Depression Score 2 10/07/2020 Last EPDS Self [...] DT Respiratory Rate 20 03/26/2021 11:47 AM CANCER REGISTRY COORDINATOR Oxygen Saturation 99% 12/25/2021 11:30 AM CDT Inhaled Oxygen Concentration - - Weight 59.9 kg (132 lb) 12/25/2021 11:30 AM CDT Height 167.6 cm (5' 6) 10/06/2020 4:45 AM CDT Body Mass Index 21.31 10/06/2020 4:45 AM CDT Plan of Treatment Health Maintenance Due Date Last Done Comments ANNUAL REVIEW OF HM ORDERS 1991 HEPATITIS B IMMUNIZATION (3 of 3 - 3-dose series) 12/10/2001 10/15/2001, 10/25/1999 HIV SCREENING 2006 HEPATITIS C SCREENING 2009 DTAP/TDAP/TD IMMUNIZATION (7 - Td or Tdap) 09/29/2021 09/30/2011, 10/30/2003, 10/24/1996, Additional history exists PAP 04/28/2022 04/28/2019, 07/01, 07/04/2014 YEARLY PREVENTIVE VISIT 10/17/2022 10/18/19, 08/19/2018, 07/28/2017, Additional history exists PHQ-2 (once per calendar year) 2023 11/21/2019, 09/27/2018, 08/19/2018, Additional history exists COVID-19 Vaccine ( season) 2023 INFLUENZA VACCINE (#1) 2023 12/14/2018 ADVANCE CARE PLANNING 03/26/2026 03/26/2021 , 04/25/2016, 04/25/2016 RSV VACCINE (1 - 1-dose 75+ series) 2066 MENINGITIS IMMUNIZATION Aged Out 09/30/2011 No l onger eligible based on patient's age to complete this topic HPV IMMUNIZATION Completed 02/26/2017, , 07/15/2016 Pneumococcal Vaccine: Pediatrics (0 to 5 Years) and At-Risk Patients (6 to 64 Years) Aged Out No longer eligible based on patient's age to complete this topic RSV MONOCLONAL ANTIBODY Aged Out No l onger eligible based on patient's age to complete this topic Procedures Procedure Name Priority Date/Time Associated Diagnosis Comments PAP IMAGED THIN LAYER SCREEN Routine 04/28/2019 4:44 PM CANCER REGISTRY COORDINATOR Pap smear for cervical cancer screening from Last 3 Months or Most Recently Relevant to Health Maintenance Results * PAP imaged thin layer screen (04/28/2019 4:44 PM CANCER REGISTRY COORDINATOR) PAP JUNIOR Clemens Report Patient Name: JACEK MARTÍNEZ MR#: [id number] Specimen #: [id number] Collected: 04/28/2019 Received: 05/02/2019 Reported: 05/03/2019 15:26 [...] adenocarcinomas or other cancers. COLLECTION SITE: Client: ??[facility] Location: OB (R) The technical component of this testing was completed at the [facility], with the professional component performed at the [facility], [address] [place] [phone] ([phone]) COPATH Cytologic material (specimen) 04/28/2019 4:44 PM CANCER REGISTRY COORDINATOR 05/02/2019 8:25 AM CANCER REGISTRY COORDINATOR Nubia Wells CNM LAB [facility] SPECIMEN COPATH from Last 3 Months or Most Recently Relevant to Health Maintenance Advance Directives For more information, please contact: [phone] * Full Code (Latest Code Status on File) Date Activated Date Inactivated Comments 10/06/2020 6:43 PM 10/08/2020 1:32 PM All basic and advanced life-sustaining interventions are performed as appropriate Question Answer Comments Code status determined by: Unable to det ermine; FULL CODE until documents or legal decision maker available Care Teams Sulfide Head Operator Relationship Specialty Start Date End Date Madeline Ventura PA-C [address], [address] [place] [address] PCP - General Physician Survey Statistician 04/25/16 Jovanny Bennett MD [address], [id number] [place] [address] Assigned PCP 03/31/21
--- OUTSIDE RECORDS SUMMARY | 2023-12-14 13:10 | XMS_ITS | Encounter Summary ---
Author Organization [place] Address [address] [facility] [place] [address] Care Team Providers Care Helpdesk Analyst Name Role Phone Madeline Ventura PA-C Primary Care Provid er Consuelo Koo MD Unavailable MortonMadeline dumont PA-C Unavailable [phone] Nancy Painter PA-C Unavailable Efrain Kramer MD Unavailable Unavailab Talita Omalley MD Unavailable [phone] Stephanie Valle [facility] Unavailable [phone] Madeline Ventura PA-C Unavailable [phone] Talita Dominguez MD Unavailable [phone] Jovanny Bennett MD Unavailable Encounter Details Date Type Department Care Team (Late st Contact Info) Description 08/15/2017 [facility] [address] [place] [address] Caroline Ennsi MD [address] [place] [address] Social History Tobacco Use Types [...] Telephone Encounter - Caroline Ennis MD - 08/18/2017 1:18 PM CDT No need to change anything for her, as cervical cancer is not hereditary so her mother's history really doesn't impact her. depression, like anxiety and depression in general, can be hereditary but there is no way to know for sure ahead of time. A history of anxiety and depression does increase the risk. There is really nothing to do ahead of time, though, besides knowing the symptoms and looking out for them, and intervening promptly if those happen. Caroline Ennis MD * Telephone Encounter - Maddy Del Real RN - 08/17/2017 8:06 AM CDT Please address the my chart message. Weston Del Real RN documented in this encounter Plan of Treatment Not on file documented as of this encounter Visit Diagnoses Not on filedocumented in this encounter Care Teams Helpdesk Analyst Relationship Specialty Start Date End Date Madeline Ventura PA-C [address] , [facility] [address] [place] [address] PCP - General Physician Senior Electronics Design Engineer 04/25/16 Consuelo Koo MD [address] [place] [address] PCP - Assigned PCP 03/15/17 05/04/18 Madeline Ventura PA-C [address], [address] [place] [address] Assigned PCP 08/03/16 10/01/19 Nancy Painter PA-C [facility] [address], [address] [place] [address] Assigned PCP 10/02/19 11/19/19 Efrain Kramer MD INACTIVE IN [place] 06/29/2020 Assigned PCP 11/20/19 11/26/19 Talita Dominguez MD [address], [address] [place] [address] Assigned PCP 11/27/19 11/24/20 Stephanie Valle CN [address] [facility] [address] [place] [address] Assigned OBGYN Provider 12/23/19 Madeline Ventura PA-C [address], [address] [place] [address] Assigned PCP 11/25/20 03/09/21 Talita Dominguez MD [address], [address] [place] [address] Assigned PCP 03/10/21 03/30/21 Jovanny Bennett MD [address], [id number] [place] [address] Assigned PCP 03/31/21 documented as of this encounter
== END 2023-12-14 12:48 | disposition home or self-care (01) ==
LOC: US 12:47
PROVIDERS: Visit Provider Advanced Practice Midwife
DX: Z34.92 Encounter for supervision of normal pregnancy, unspecified, second trimester (principal); Z3A.20 20 weeks gestation of pregnancy
CPT/HCPCS: 76805

== ENCOUNTER 2024-02-10 09:32 | Outpatient (CLI) | payer BC, SELFPAY | END 2024-02-10 09:33 | disposition home or self-care (01) | LOC: NFLDREF 02-12 11:32 | PROVIDERS: Visit Provider Midwife | DX: Z34.82 Encounter for supervision of other normal pregnancy, second trimester (principal) | CPT/HCPCS: 86592 ==

== ENCOUNTER 2024-04-06 09:45 | Outpatient (CLI) | payer BC, SELFPAY | END 2024-04-06 09:46 | disposition home or self-care (01) | LOC: NFLDREF 04-13 00:57 | PROVIDERS: Visit Provider Advanced Practice Midwife | DX: Z34.83 Encounter for supervision of other normal pregnancy, third trimester (principal); Z3A.36 36 weeks gestation of pregnancy | CPT/HCPCS: 87081; 87653 ==

== ENCOUNTER 2024-04-29 00:13 | Inpatient (IN) | payer BC, SELFPAY ==
[2024-04-28 23:39] VITALS: BP 120/73; PULSE 87; RESP 16; TEMP 36.7
[2024-04-29] VITALS (12 sets, daily range): BP systolic 104–123; BP diastolic 65–81; PULSE 68–88; RESP 14–20; TEMP 36.7–37.1; O2SAT 96–98; BMI 28.2
--- NOTE | 2024-04-29 00:49 | W.PM.LDBA ---
Documented by User: Giulia Mattson CNM 04/29/24 03:45 Subjective History of Present Illness Narrative: Patient is being admitted to Labor and Delivery for []. She is a 34 year old at weeks gestation. Her full history and physical was dictated by [] on []. Please see this for details. [] Specific Issues/Plans Partner: ?[place]; Son Garett. It is a girl! H&P completed by Magalys on _04/20/2024? [facility] from [facility] /at 19.1 wks #Hx of PTL at 33 wks, delivered at 39 weeks ? #Hx of Anxiety and Depression #UTI tx at NOB visit, JOSIE neg? ?? Imaging: ? Summary of imaging including Level II or follow-ups reported here, BPP scores not necessary ? OB Labs: ? Blood type: A+, antibody screen negative. ? Hgb: 13.9 ? Platelets: 192 ? Rubella: Immune ? Varicella: Immune RPR: non-reactive ? HBsAg: non-reactive ? Hep C: negative HIV: negative Hgb A1c: 5.2 (03/03/23)? UC: positive tx with Macrobid, recheck 10/21 negative GC/Chlamydia: not tested ? Pap (03/2023): NILM, no HPV tested ? Genetic screening: not done ? IMAGING: ? 1st trimester: ?10/01/23 Single intrauterine, GA by LMP 9w4d, GA by US 9w5d. 10/22/23 Single live intrauterine 12w4d. Cardiac motion seen. PATITO resolved. Anatomy scan: not performed yet COVID: ?offered, declined Flu: ?offered declined Tdap: ?Declines 02/22/24 32wk Mental Health: ? Pap: (03/2023): NILM, no HPV tested ? Comments: Unruly Campos APRN, CNM, was present for visit and have reviewed and agree with documentation by the Certified Nurse Midwifery Student.? ? OB - Problem Based A/P Additional Plan (1) Pain during labor: Status: Acute (2) : Status: Acute OB Result Labs Blood Type: A (+) positive Rubella: immune RPR/VDLR: nonreactive GBS Status: negative HBsAG: negative OB Exam Physical Exam Vital signs: Temp Pulse Resp BP 98.1 F 87 16 120/73 04/28/24 23:39 04/28/24 23:39 04/28/24 23:39 04/28/24 23:39 Narrative: Vitals Reviewed Constitutional:? Alert and oriented x3 HEENT:? Normocephalic, atraumatic Neck:? Supple Lungs:? Clear to auscultation bilaterally Heart:? Regular rate and rhythm, no murmur, rub or gallop Abdomen:? Soft, nontender, and gravid. Vertex by Dean's, confirmed with cervical exam. Extremities:? No edema or erythema Cervix: [] cm/[]%/[] station/[vertex] NST: [] bpm/[] variability/[]accelerations/[]decelerations/[]contractions Documented by User: Lazara Celaya 04/29/24 02:18 Subjective History of Present Illness Time Seen by Provider: 01:35 Date Seen: 04/29/24 Narrative: Patient is being admitted to Labor and Delivery for contractions which started at home this afternoon and have been increasing in frequency and intensity. She is a 34 year old at 39weeks 5days gestation. Her full history and physical was dictated by Karina Mattson on 04/20/24. Please see this for details. Patient is in room standing at bedside comfortably swaying, breathing through contractions, which she feels she is managing well at this point. She desires a water , and is also open to anesthesia options. Her , [place], is at the bedside and supportive. Specific Issues/Plans Partner: ?[place]; Son Garett. It is a girl! H&P completed by Magalys on _04/20/2024? Tx from [facility] /at 19.1 wks #Hx of PTL at 33 wks, delivered at 39 weeks ? #Hx of Anxiety and Depression #UTI tx at NOB visit, JOSIE neg? ?? Imaging: ? Summary of imaging including Level II or follow-ups reported here, BPP scores not necessary ? OB Labs: ? Blood type: A+, antibody screen negative. ? Hgb: 13.9 ? Platelets: 192 ? Rubella: Immune ? Varicella: Immune RPR: non-reactive ? HBsAg: non-reactive ? Hep C: negative HIV: negative Hgb A1c: 5.2 (03/03/23)? UC: positive tx with Macrobid, recheck 10/21 negative GC/Chlamydia: not tested ? Pap (03/2023): NILM, no HPV tested ? Genetic screening: not done ? IMAGING: ? 1st trimester: ?10/01/23 Single intrauterine, GA by LMP 9w4d, GA by US 9w5d. 10/22/23 Single live intrauterine 12w4d. Cardiac motion seen. PATITO resolved. Anatomy scan: not performed yet COVID: ?offered, declined Flu: ?offered declined Tdap: ?Declines 02/22/24 32wk Mental Health: ? Pap: (03/2023): NILM, no HPV tested ? Comments: OB - Problem Based A/P Additional Plan (1) Pain during labor: Status: Acute (2) : Status: Acute Plan ASSESSMENT:?? 34 at 39 weeks 5 days gestation?? complicated by:??No complications Labor type: Spontaneous, Early labor?? Category 1 FHR pattern.??? Labor complicated by: No complications?? GBS negative ?? PLAN:?? 1. Routine intrapartum cares as ordered. Continue with expectant management?? 2. Monitoring per policy, intermittent?? 3. Planning unmedicated . Desires water . Consent signed. Hep C negative. Candidate for analgesia of choice.??? 4. Patient encouraged to reposition and ambulate to promote physiologic labor and .?? 5. Will recheck cervix when patient desires or when clinically necessary. 6. Anticipate ? Delivery/Labor/Induction Plan Plan: expectant management OB Exam Physical Exam Narrative: Vitals Reviewed Constitutional:? Alert and oriented x3 HEENT:? Normocephalic, atraumatic Neck:? Supple Lungs:? Clear to auscultation bilaterally Heart:? Regular rate and rhythm, no murmur, rub or gallop Abdomen:? Soft, nontender, and gravid. Vertex by Dean's, confirmed with cervical exam, (per nursing cervical exam). Extremities:? No edema or erythema Cervix: 4 cm/70%/-1 station/vertex (per nursing) NST: 135 bpm/moderate variability/15x15 accelerations present/decelerations not present/regular contractions 1.5-5 min in frequency Detailed Labor and Delivery Exam Patient Gravid: Yes Dilation (cm): 4 Effacement (%): 70 Tachysystole: No Fetus (Single) Amniotic Membrane Status: intact Monitor Accelerations: Present Monitor Decelerations: None Applications System Analyst Variability: Moderate (6-25)
--- NOTE | 2024-04-29 03:37 | W.PM.OBVAGDE ---
Documented by User: Giulia Mattson CNM 04/29/24 05:00 OB Procedure Vag Delivery Additional Details Heart: heart tones during second stage were were normal baseline with no audible increases or decreases. Delivery Details Delivery Details: Patient was admitted for onset of spontaneous labor and progressed normally. SROM noted at 0312 with clear fluid. Patient was complete at 0307 and pushing at 0307. of a viable female at 0313 in standing position leaning over the bed. Vertex delivered OA. No nuchal cord or shoulder dystocia. Body delivered easily and without incident. Infant passed to mothers arms with a vigorous cry. Cord was clamped and cut at > 5 minutes. APGARS were 8 at one minute and 9 at five minutes respectively. Intact placenta with a 3 vessel cord delivered spontaneously at 0323. Fundus firm. 1st degree bilateral labial lacerations identified, hemostatic. QBL 80 cc. Mother and baby stable; mother plans to breastfeed. weight pending.? Additional Details Laceration: Labial (bilateral, hemostatic, not repaired) Episiotomy Description: None Sponge/Need Count Correct: Yes Event Summary Status: Mother and were stable after delivery. Unruly Campos APRN, CNM, was present for visit and have reviewed and agree with documentation by the Certified Nurse Midwifery Student.? ? Documented by User: Lazara Celaya 04/29/24 04:39 OB Procedure Vag Delivery Mother Details Mother Details: The patient is a 34 year-old, 2, Para 2, admitted on 04/29/24 at 39 weeks 5 Days gestation. : 2 Para: 2 Weeks Gestation: 39.5 Admission Date: 04/29/24 Additional Details Amniotic Membrane Status: SROM Amniotic Membrane Rupture Date: 04/29/24 Amniotic Membrane Rupture Time: 03:12 Amniotic Membrane Fluid Description: Clear Analgesia/Anesthesia Type: None Waterbirth: No Pitcoin: No Intrapartal Events: None Labor Onset: 20:00 (on 04/28/24) Complete: 03:07 Pushin:07 Heart: heart tones during second stage were were not auscultated due to rapid progression. Delivery Details Delivery Date: 04/29/24 Delivery Time: 03:13 Route of delivery: Gender: Female Viability: Alive; Heart Rate Present Position at Delivery: OA Delivery Details: Patient was admitted for onset of spontaneous labor and progressed normally. SROM noted at 0312 with clear fluid. Patient was complete at 0307 and pushing at 0307. of a viable female at 0313 in standing position leaning over the bed. Vertex delivered OA. No nuchal cord or shoulder dystocia. Body delivered easily and without incident. passed to mothers arms with a vigorous cry. Cord was clamped and cut at > 5 minutes. APGARS were 8 at one minute and 9 at five minutes respectively. Intact placenta with a 3 vessel cord delivered spontaneously at 0323. Fundus firm. 1st degree periurethral bilateral identified, no repair needed. EBL 80 cc. Mother and baby stable; mother plans to breastfeed. weight pending.? 1 Minute Interval Total Score: 8 5 Minute Interval Total Score: 9 Additional Details Shoulder Dystocia: No Placenta Delivery Time: 03:23 Placental Delivery Description: Spontaneous Procedure Done: Global Laceration: Periurethral - 1st Degree (Bilateral, hemostatic ) Blood Loss Measurement Type: EBL Bakri Used: No Cord Vessel Description: 3 Vessels Event Summary Status: Mother and infant were stable after delivery. Disposition: floor
[2024-04-30 06:10] VITALS: BP 117/73; PULSE 82; RESP 16; TEMP 36.6; O2SAT 97
--- NOTE | 2024-04-30 08:33 | PM.OBDSVD1 ---
DS: Providers Provider Date Seen: 04/30/24 Date of admission: 04/29/24 00:13 Primary care physician: Not a Local Provider Admitting Clinician: Giulia Mattson CNM Attending Physician on discharge: Kiarra Josue APRN, CNM DS: Diagnosis Discharge Diagnosis (1) care and examination immediately after delivery: Status: Acute (2) Lactating mother: Status: Acute Exam Narrative: Exam Narrative: GENERAL APPEARANCE:? normal affect, alert, no distress MOOD:? appropriate CHEST:? clear to auscultation HEART:? regular rate and rhythm ABDOMEN:? soft, non-tender the uterine fundus is At Umbilicus, Midline and is appropriate for the stage of recovery. PERINEUM:? mild edema of the perineum; hemorroids present EXTREMITIES:? normal and no edema Const: Vital Signs, click to edit/add: Vital Signs - 24 hr 04/29/24 09:29 04/29/24 12:08 04/29/24 17:16 Temperature 98.0 F 98.0 F 98.7 F Pulse Rate [Pulse Oximeter] 86 68 86 Respiratory Rate 16 16 16 Blood Pressure [Ri ght Arm] 104/68 119/74 104/70 Pulse Oximetry 98 97 96 Oxygen Delivery Me thod Room Air Room Air Room Air 04/29/24 22:00 04/30/24 06:10 Temperature 97.9 F Pulse Rate [Pulse Oximeter] 72 82 Respiratory Rate 14 16 Blood Pressure [Ri ght Arm] 113/69 117/73 Pulse Oximetry 97 97 Oxygen Delivery Me thod Room Air Room Air Documenting provider has reviewed patient's vital signs: yes OB - DS: Summary Hospital Course Hospital Course: Siobhan is a 34 y.o. G 2 P 2 who was admitted to [facility] for spontaneous onset of labor. ?She had a NVD that was uncomplicated. The patient feels well. ?The pain is well controlled with current medications. ?She has no new complaints. ?She is breast feeding and reports things are going well. the patient has done well.? Vitals have been stable.? She has remained afebrile.? Has a good appetite, is tolerating a general diet. ?She is voiding without difficulty.? She is passing gas and has not had a bowel movement.? She is ambulating and denies any dizziness.? Has small amount of rubra lochia. She is planning NFP for prevention. Problems: Denies Discharge home with baby.? Follow up in 2 weeks and 6 weeks.? , may see if needed? Hgb 11.3. ?? For pain control of perineum, breast and pelvic pain, take 600 mg Ibuprofen every 6 hours as needed by mouth or 1000 mg acetaminophen (Tylenol) every 6 hours by mouth as needed. You can alternate these so you are taking something every 3 hours as needed. A heating pad can also be used for your abdomen or breasts. You may also take docusate sodium up to twice daily to soften your stools and help to prevent constipation. You may wean off of it when your stools return to normal.? Peripartum Data Infant delivery method: Vaginal Laceration description: Labial complications: none [place] Infant Gender: Female Infant Discharge Plan: Home Status at Discharge Functional status at discharge: independent ambulation Overall status at discharge: patient is progressing back to baseline Time Spent with Patient Time attestation: Total time spent providing and/or coordinating discharge services: Time spent: Less than 30 minutes Discharge Plan Discharge Disposition: Home, Self-Care Date of Admission: 04/29/24 00:13 Attending Provider on Discharge: Kiarra Josue Primary Care Provider: Provider,Not a Local Condition: Stable Anticipated Discharge Date/Time: 04/30/24 12:00 Discharge Medications: New docusate sodium 100 mg Capsule 100 mg PO DAILY Qty: 0 0RF ibuprofen 600 mg Tablet 600 mg PO Q6H PRNQty: 0 0RF acetaminophen 500 mg Tablet 1,000 mg PO Q6H PRN (Reason: pain/fever) Qty: 0 0RF Continued DHA 200 mg capsule PO magnesium 200 mg tablet 200 mg PO QDAY Discharge Orders: Discharge Order (Routine); Ordered 04/30/24 Ordered By: Kiarra Josue Patient Education: OB Over the Counter Medication Information, OB Vaginal/Breast Feeding Additional Instructions: Discharge instructions were reviewed with the patient including signs and symptoms of infection and home going medications Nothing vaginally for 6 weeks: no tampons or intercourse Off Work or School for 6 weeks 2-week visit: discuss infant feeding concerns, review control options and screen for anxiety/depression. 6-week visit for an annual exam. consultation services are available to all mothers and babies for the first year after delivery.? To make an appointment, please call [phone]. Activity Level: Activity as Tolerated Discharge Diet: Regular Follow Up Appointments: [facility] [Provider Group] Forms: [employer] Info Instructions
[2024-04-30] MEDS: DOCUSATE SODIUM 100 MG CAPSULE PO (09:45)
[2024-04-30 10:33] VITALS: BP 113/76; PULSE 76; RESP 16; TEMP 37; O2SAT 97
[2024-05-01 01:51] LABS: Rapid Plasma Reagin (RPR) Non Reactive (Non Reactive)
== END 2024-04-30 13:03 | disposition home or self-care (01) | DRG 560 ==
LOC: OB OUT 00:13 → OB 00:13
PROVIDERS: Admitting Provider Midwife; Visit Provider Midwife
DX: O99.344 Other mental disorders complicating childbirth (principal); F41.9 Anxiety disorder, unspecified; F32.A Depression, unspecified; O71.82 Other specified trauma to perineum and vulva; O70.0 First degree perineal laceration during delivery; O87.2 Hemorrhoids in the puerperium; Z3A.39 39 weeks gestation of pregnancy; Z37.0 Single live birth
CPT/HCPCS: 36415; 59025; 86592; G0463; A9270

== ENCOUNTER 2024-05-30 09:12 | Outpatient (CLI) | payer BC, SELFPAY ==
--- NOTE | 2024-05-30 10:42 | P.LACCB_ITS ---
Consult Note - Mom Date of Visit Date of visit: 05/30/24 Reason for consultation: Assistance Needed Visit Code: Visit Patient's Information Phone number: [phone] Para: 2 Allergies cefaclor (From Ceclor) Allergy (Intermediate, Verified 04/27/24 14:08) Mother's Medical History: Medical History (Updated 05/05/24 @ 00:01 by Background Daemon) Anxiety ?F41.9 - Anxiety disorder, unspecified (ICD-10) IBS (irritable bowel syndrome) ?K58.9 - Irritable bowel syndrome without diarrhea (ICD-10) Migraine ?G43.909 - Migraine, unspecified, not intractable, without status migrainosus (ICD-10) Work Plans: return to work in July Delivery Information Delivery type: Vaginal Gestational Age: 39+5 Gestational Weight For Age: AGA Weight: 3.32 kg Baby's Information Baby's Age at Visit: 31 days Baby's Provider or Clinic: [facility] Jaundice: No Past Experience Past Experience: Yes (1 month with first child due to tongue/lip tie issues) Current Frequency of Day Feedings: 'all the time at least every 2 hours Frequency of Night Feedings: one 3-4 hr stretch, then every 1-2 hrs, some feeding, some comfort Both Breasts: Yes Suck: ok , not overly strong Latch: comfortable, lips flanged, not deep enough Length of Time: 10-20 minutes Pumping Pumping: Yes Quantity Pumped: 2-3 oz/pumpafter a nursing session Supplementing EBM Supplement: No Formula Supplement: No Baby Elimination Number of Wet Diapers a Day: ea feeding Number of BM a Day: 1z/day- yellow, seedy in consistency Breast/Nipple Condition Breast Information: Breasts are symmetrical with rounded lower quadrants, intramammary distance is less than 1.5 inches. No erythema. Nipples are intact, everted prior to feeding. No issues with mastitis, plugged ducts. Breast Shape: Round Engorgement: No Maternal Nipple Condition - Left: Common Nipple Maternal Nipple Condition - Right: Common Nipple Sore Nipples: No Baby Assessment Skin: Normal Tongue/frenulum: Restricted mid-range and History of frenotomy (anterior frenulum clipped at ) Palate: Narrow (slight) Lips: Relaxed and Symmetrical Jaw Alignment: Symmetrical Mucosa: [place], moist Onsite Observation Pre-Feed weight: 4.272 kg (up 492gms in 14 days; average 35 gm/day) Post-Feed weight: 4318 kg Milk Transferred (mL): 46 (10 min ea breast, unlatched self) Position: Cross cradle Attachment/latch-on achieved: Easily Suck pattern: Suck burst and normal rest Swallow: Audible, consistent Behavior following feed: Relaxed, sleepy (when comes off breast) and Alert, content (after mom pulls baby away from breast) Pre-Nursing Left Nipple: Within Normal Limits Pre-Nursing Right Nipple: Within Normal Limits Post-Nursing Left Nipple: Within Normal Limits Post-Nursing Right Nipple: Within Normal Limits Assessments/Interventions Assessments/Interventions: observation: Baby latches easily to both breasts for feeding; nurses 10 min ea side and pulls self off independently Worked with mom and baby to attempt a deeper latch for increased milk transfer Discussed using breast compression during end of feeding, as baby gets economist research assistant on her suckling, to help increase milk transferred and hopefully extend time between feedings some This may all change after baby gets posterior release in 1 week; discussed with mom that baby will need to relearn how to use her tongue after the release and this will take time. Discussed bottle options: currently trying Meena with mild success, also has Dr. Alvarez and Garry Zambrano at home; recommended Lansinoh, Evenflo Balance and Standard as other options with different bottle nipple that might work better. Continue with exercises given by craniosacral therapist, and expect additional exercises after posterior release-importance discussed related to tongue healing. Education provided: Asymmetric latch technique for wide/deep latch to increase milk, Transfer for baby and increase comfort for mom, Supply/demand nature of milk supply, Alternative feeding methods (SNS, cup, finger feeding, bottling) and Pumping for milk management Follow-Up Suggested follow up: Appointment as needed Time Spent Time spent with patient (min): 60 Meds Home Medications and Allergies Home Medications ?Medication ?Instructions ?Recorded ?Confirmed ?Type docosahexaenoic acid 200 mg mg PO 12/07/23 04/27/24 History capsule ( DHA) magnesium 200 mg tablet 200 mg PO QDAY 12/07/23 04/28/24 History Allergies Allergy/AdvReac Type Severity Reaction Status Date / Time cefaclor (From [facility]) Allergy Intermediate Verified 04/27/24 14:08
== END 2024-05-30 09:13 | disposition home or self-care (01) ==
LOC: OB LAC 09:12
PROVIDERS: Visit Provider Obstetrics & Gynecology
DX: Z39.1 Encounter for care and examination of lactating mother (principal)
CPT/HCPCS: G0463